=== PATIENT | female | born 1980 | race Caucasian/White ===

== ENCOUNTER → 2018-06-18 | Outpatient (CLI) | payer BC ==
--- NOTE | 2018-06-18 12:25 | FL ---
Fluoroscopic-guided hysterosalpingogram HISTORY: Infertility Exam date: 06/18/2018 FINDINGS: Busser image demonstrates Calcifications in the pelvis is likely vascular. Spina bifida occulta noted. Procedure was performed by Dr. Claudio. Contrast is seen within the uterus. There is free spillage on t he right. There may be mild right hydrosalpinx. No definite spillage is seen on the left. 1 minute and 17 seconds of fluoroscopy and 3 images submitted. IMPRESSION: 1. Free spillage is noted involving the right fallopian tube. No definite free spillage seen on the l eft.
== END | disposition home or self-care (01) ==
LOC: RADFLWHC 10:54
PROVIDERS: ATTEND Obstetrics & Gynecology Obstetrics
DX: N97.9 Female infertility, unspecified (principal)
CPT/HCPCS: 58340; 74740; Q9967